=== PATIENT | female | born 1965 | race Two or more races ===

== ENCOUNTER 2020-04-11 11:28 | Emergency (ER) | payer OTHER ==
[~2020-04-11] VITALS: Ht 160 cm; Wt 65.8 kg
[2020-04-11] MEDS ORDERED: METFORMIN500 MG/5 M PO (11:34)
[2020-04-11] MEDS ORDERED: KETO10TA2 PO (15:20)
[2020-04-11] MEDS ORDERED: METFORMIN HCL500 MG PO (15:20)
== END 2020-04-11 16:11 ==
LOC: ER 11:28
DX: G43.809 Other migraine, not intractable, without status migrainosus (principal); E13.65 Other specified diabetes mellitus with hyperglycemia; Z79.84 Long term (current) use of oral hypoglycemic drugs